=== PATIENT | male | born 1975 | race Hispanic/Latino ===

== ENCOUNTER 2018-04-04 14:02 | Emergency (ER) | payer SELFPAY ==
[2018-04-04] MEDS ORDERED: Ketorolac Tromethamine 30 MG/ML VIAL ONE (14:16)
--- NOTE | 2018-04-04 16:10 | RAD ---
3 VIEWS RIGHT SHOULDER: Date: 04/04/18 HISTORY: Right shoulder pain since Thursday. FINDINGS: Coracoclavicular and acromioclavicular distances are within normal limits. No fracture or dislocation is seen involving the right shoulder. IMPRESSION: No acute osseous abnormality right shoulder. If there is concern for rotator cuff tear, MRI can be pe rformed for further evaluation on a nonemergent basis. POS: MEY
== END 2018-04-04 14:56 | disposition home or self-care (01) ==
LOC: ERS 14:02
DX: S43.421A Sprain of right rotator cuff capsule, initial encounter (principal); E11.9 Type 2 diabetes mellitus without complications; E78.5 Hyperlipidemia, unspecified; I10 Essential (primary) hypertension; X58.XXXA Exposure to other specified factors, initial encounter
CPT/HCPCS: 96372; J1885